=== PATIENT | female | born 1950 | race Caucasian/White ===

== ENCOUNTER 2022-12-02 18:27 | Emergency (ER) | payer MEDICARE ==
[2022-12-02] MEDS ORDERED: Morphine 4 MG/ML VIAL ONE (20:48)
[2022-12-02] MEDS ORDERED: Ondansetron PF 4 MG/2 ML Vial ONE (20:49)
[2022-12-02 21:05] LABS: #Basophils 0.1 10x3/uL (0.0-0.2); #Eosinphils 2.5 10x3/uL (0.0-0.5); #Neutrophils 10.5 10x3/uL (1.5-8.4); %Basophils 0.7 % (0.0-2.0); %Eosinophils 14.2 % (0.0-6.0); %Lymphocytes 12.7 % (18.0-47.0); %Monocytes 11.3 % (0.0-10.0); %Neutrophils 60.6 % (40.0-75.0); Hematocrit 36.7 % (34.9-44.5); Hemoglobin 11.5 g/dL (12.0-15.5); Mean Corpuscular HGB CONC 31.3 g/dL (32.0-36.0); Mean Corpuscular Hemoglobin 27.2 pg (27.0-33.0); Mean Corpuscular Volume 86.8 fl (81.6-98.3); Mean Platelet Volume 8.9 fl (7.4-10.4); Platelet Count 558 10x3/uL (150-450); RBC Distribution Width 14.5 % (11.5-14.5); Red Blood Cell (RBC) Count 4.23 10x6/uL (3.90-5.03); White Blood Cell (WBC) Count 17.4 10x3/uL (3.5-10.5)
[2022-12-02 21:21] LABS: ALT (SGPT) 7 U/L (8-55); AST (SGOT) 11 U/L (5-34); Albumin 3.8 g/dL (3.4-4.8); Alkaline Phosphatase 103 U/L (40-110); Anion Gap 19 mmol/L (10-20); BUN (Urea Nitrogen) 14 mg/dL (9.8-20.1); Bilirubin, Total 0.2 mg/dL (0.2-1.2); Calc. Creatinine Clearance 0 mL/min (70-130); Calcium 10.2 mg/dL (7.8-10.44); Carbon Dioxide 27 mmol/L (23-31); Chloride 96 mmol/L (98-107); Estimated GFR 94; Globulin 3.8 g/dL (2.4-3.5); Glucose 143 mg/dL (83-110); Protein, Total 7.6 g/dL (5.8-8.1); Sodium 139 mmol/L (136-145)
[2022-12-02 21:27] LABS: Bilirubin Neg (Negative); Blood, Urine 25 (Negative); Clarity Cloudy (Clear); Glucose, Urine (Dipstick) Normal (Negative); Ketone, Urine 50 mg/dL (Negative); Leukocyte 100 (Negative); Nitrite Negative (Negative); Protein, Urine (Dipstick) 30 mg/dl (Neg-Trace)
[2022-12-02 21:45] LABS: Bacteria/HPF 2+ HPF (None Seen); CAUTI Indications for Culture Pelvic or flank pain; RBC/HPF 0-3 HPF (0-3); Squamous Epithelial 0-3 HPF (0-3)
[2022-12-02 21:46] LABS: Urine Culture Reflex No No
[2022-12-02] MEDS ORDERED: Potassium Chloride 20 MEQ TAB ONE (21:52)
[2022-12-02] MEDS ORDERED: cefTRIAXone (ROCEPHIN) 1 GM VIAL ONE (22:28)
== END 2022-12-02 23:30 | disposition home or self-care (01) ==
LOC: CSHERS 18:27
DX: N39.0 Urinary tract infection, site not specified (principal); M54.50 Low back pain, unspecified; F17.210 Nicotine dependence, cigarettes, uncomplicated
CPT/HCPCS: 80053; 81001; 85025; 96365; 96375; J0696; J2270; J2405

== ENCOUNTER 2022-12-19 16:12 | Emergency (ER) | payer MEDICARE, MEDICAID ==
[~2022-12-19 16:12] MED LIST: Iopamidol 300 61% 100 ML VIAL FS ONE
[2022-12-19 17:05] LABS: ALT (SGPT) Less than 7 U/L (8-55); AST (SGOT) 9 U/L (5-34); Albumin 3.8 g/dL (3.4-4.8); Alkaline Phosphatase 104 U/L (40-110); Anion Gap 22 mmol/L (10-20); BUN (Urea Nitrogen) 15 mg/dL (9.8-20.1); Bilirubin, Total 0.3 mg/dL (0.2-1.2); Calc. Creatinine Clearance 0 mL/min (70-130); Carbon Dioxide 24 mmol/L (23-31); Chloride 99 mmol/L (98-107); Estimated GFR 95; Globulin 3.4 g/dL (2.4-3.5); Glucose 121 mg/dL (83-110); Magnesium 1.9 mg/dL (1.6-2.6); Potassium 3.5 mmol/L (3.5-5.1); Protein, Total 7.2 g/dL (5.8-8.1); Sodium 141 mmol/L (136-145)
[2022-12-19 17:13] LABS: Troponin I Less than 0.010 ng/mL (< 0.028)
[2022-12-19] MEDS ORDERED: Morphine 4 MG/ML VIAL ONE ×2 (17:13→18:47)
[2022-12-19] MEDS ORDERED: Ondansetron PF 4 MG/2 ML Vial ONE (17:13)
[2022-12-19 17:26] LABS: #Basophils 0.1 10x3/uL (0.0-0.2); #Eosinphils 2.6 10x3/uL (0.0-0.5); #Neutrophils 15.7 10x3/uL (1.5-8.4); %Basophils 0.6 % (0.0-2.0); %Eosinophils 11.4 % (0.0-6.0); %Lymphocytes 10.5 % (18.0-47.0); %Monocytes 8.5 % (0.0-10.0); Hematocrit 40.4 % (34.9-44.5); Hemoglobin 12.8 g/dL (12.0-15.5); Mean Corpuscular HGB CONC 31.7 g/dL (32.0-36.0); Mean Corpuscular Volume 88.4 fl (81.6-98.3); Mean Platelet Volume 9.4 fl (7.4-10.4); Platelet Count 535 10x3/uL (150-450); RBC Distribution Width 14.4 % (11.5-14.5); Red Blood Cell (RBC) Count 4.57 10x6/uL (3.90-5.03); White Blood Cell (WBC) Count 23.1 10x3/uL (3.5-10.5)
[2022-12-19] MEDS ORDERED: cefTRIAXone (ROCEPHIN) 1 GM VIAL ONE (18:04)
[2022-12-19 19:05] LABS: Bilirubin Neg (Negative); Blood, Urine Negative (Negative); Clarity Clear (Clear); Glucose, Urine (Dipstick) Normal (Negative); Ketone, Urine 50 mg/dL (Negative); Leukocyte Negative (Negative); Nitrite Negative (Negative); Protein, Urine (Dipstick) Negative (Neg-Trace); Urobilinogen Normal mg/dL (Less than 2)
[2022-12-19 19:25] LABS: Bacteria/HPF Rare-Few HPF (None Seen); CAUTI Indications for Culture Dysuria,urgency,freq; RBC/HPF None Seen HPF (0-3); Squamous Epithelial 0-3 HPF (0-3); WBC/HPF 0-3 HPF (0-3)
[2022-12-19 19:26] LABS: Urine Culture Reflex No No
== END 2022-12-19 21:28 | disposition short-term general hospital (02) ==
LOC: CSHERS 16:12
DX: R91.8 Other nonspecific abnormal finding of lung field (principal); M85.9 Disorder of bone density and structure, unspecified; Z87.891 Personal history of nicotine dependence
CPT/HCPCS: 71045; 74177; 80053; 81001; 83605; 83735; 84484; 85025; 93005; 93010; 96374; 96375; 96376; J0696; J2270; J2405; Q9967